=== PATIENT | female | born 1945 | race Caucasian/White ===

== ENCOUNTER 2020-03-15 21:17 | Emergency (ER) | payer MEDICARE, OTHER ==
[~2020-03-15] VITALS: Ht 162.6 cm; Wt 49.9 kg
[~2020-03-15 21:17] MED LIST: ASPIR 8181 MG PO; BONIVA150 MG PO; CRESTOR10 MG PO; HYDROXYCHLOROQ200 M1 PO; LEVOTHYROXIN0.075 MG PO; PERCOCET 5-3251 EACH PO; ZETIA10 MG PO
[2020-03-15 21:26] VITALS: BP 200/86
== END 2020-03-15 21:57 | disposition home or self-care (01) ==
LOC: M.ERS 21:17
DX: S60.221A Contusion of right hand, initial encounter (principal); X58.XXXA Exposure to other specified factors, initial encounter; Y93.89 Activity, other specified; Y92.89 Other specified places as the place of occurrence of the external cause; Y99.8 Other external cause status

== ENCOUNTER → 2021-01-22 | Outpatient (CLI) | payer MEDICARE, OTHER | LOC: M.ULTRA 07:54 | PROVIDERS: ATTEND Nurse Practitioner Family | DX: I71.4 Abdominal aortic aneurysm, without rupture (principal); R74.8 Abnormal levels of other serum enzymes ==